=== PATIENT | female | born 1955 | race Caucasian/White ===

== ENCOUNTER 2019-05-23 09:24 | Inpatient (IN) ==
--- NOTE | 2019-05-23 11:10 | Diag Imaging Result Doc PS360 ---
EXAM: CHEST-2 VIEWS HISTORY: CHEST PAIN TECHNIQUE: Two views COMPARISON: None. FINDINGS: The lungs are well expanded. The heart is not enlarged. The vessels are not distended. There are no infiltrates. No pleural effusions. IMPRESSION: No acute abnormality. Electronically signed by Tevin Wise 05/23/2019 11:08 AM
--- NOTE | 2019-05-23 11:14 | Diag Imaging Result Doc PS360 ---
EXAM: KNEE 3 VIEWS RIGHT HISTORY: knee pain TECHNIQUE: Three views COMPARISON: None. FINDINGS: The bones are osteopenic. Minimal joint space narrowing. Small patellar bone spurring. No fracture. No dislocation. IMPRESSION: Mild arthritis. Electronically signed by Tevin Wise 05/23/2019 11:12 AM
--- NOTE | 2019-05-23 11:15 | Diag Imaging Result Doc PS360 ---
EXAM: XRAY PELVIS W/HIP 2-3VW RT HISTORY: hip pain TECHNIQUE: Three views COMPARISON: None. FINDINGS: There is bone spurring to each hip with mild joint space narrowing. No fracture. No dislocation. IMPRESSION: Mild arthritis Electronically signed by Tevin Wise 05/23/2019 11:13 AM
--- NOTE | 2019-05-23 11:22 | EKG Report ---
Test Performed on : 05/23/2019 09:31:52 AM Test Reason : CHEST PAIN Blood Pressure : / mmHG Vent. Rate : 078 BPM Atrial Rate : 078 BPM P-R Int : 122 ms QRS Dur : 088 ms QT Int : 378 ms P-R-T Axes : 024 -14 -10 degrees QTc Int : 430 ms Sinus rhythm. with premature supraventricular complexes. Moderate voltage criteria for LVH, may be normal variant Borderline ECG When compared with ECG of 11-APR-2010 11:18, premature supraventricular complexes. are now present T wave amplitude has increased in Lateral leads Unconfirmed Result
[2019-05-23 11:31] LABS: BASO# 0.01 X1000 (0.0-0.2); BASO% 0.1 % (0.0-0.8); EOS# 0.01 X1000 (0.0-0.7); EOS% 0.1 % (0.0-10.0); HEMATOCRIT 37.4 % (37.0-47.0); HEMOGLOBIN 11.9 g/dL (12.0-16.0); IMM GRAN# 0.05 X1000 (0.0-0.04); IMM GRAN% 0.3 % (0.0-0.5); LYMPH# 0.55 X1000 (1.2-3.4); LYMPH% 3.1 % (20.5-51.1); MCH 28.6 PG (27-31); MCHC 31.8 g/dL (33-37); MCV 89.9 FL (81-99); MONO# 0.56 X1000 (0.11-0.59); MONO% 3.2 % (1.7-9.3); MPV 12.5 FL (7.4-10.4); NEUT# 16.55 X1000 (1.4-6.5); NEUT% 93.2 % (42.2-75.2); PLT 133 X1000 (130-400); RBC 4.16 XMIL (4.2-5.4); RDW 13.4 % (11.5-14.5); WBC 17.73 X1000 (4.8-10.8)
[2019-05-23 11:37] LABS: INR 1.08; PROTIME 14.1 Seconds (11.0-16.0)
[2019-05-23 11:48] LABS: ALB/GLOB RATIO 0.9; ALBUMIN 3.1 g/dL (3.5-5.0); CALCIUM 9.1 mg/dL (8.8-10.2); CREATININE 2.5 mg/dL (0.5-0.9); POTASSIUM 3.9 mmol/L (3.5-5.1); TOTAL BILIRUBIN 1.25 mg/dL (0.20-1.00); TOTAL PROTEIN 6.7 g/dL (6.3-8.3)
--- NOTE | 2019-05-23 12:59 | PROVIDER DOCUMENTATION ---
This chart was entered by Desi Taylor Scribe, acting as scribe for Pat Paiz MD. HPI-General Adult - General Chief Complaint: Chest Pain Stated Complaint: Chest pain, N/V, dizziness Time Seen by Provider: 05/23/19 10:18 Source: patient, family Allergies/Adverse Reactions: Patient Allergies Allergy/AdvReac Type Severity Reaction Status Date / Time No Known Allergies Allergy Verified 05/23/19 11:53 Home Medications: Home Medication List Medication Instructions Recorded Confirmed Last Taken Type Duloxetine [Cymbalta] 60 mg PO DAILY 05/23/19 05/23/19 05/20/19 History Hydrocodone/APAP 7.5 mg/325 mg 1 ea PO Q4H PRN PRN 05/23/19 05/23/19 05/22/19 History [[place]-7.5] - History of Present Illness -Gen Adult Nature of Presenting Problems: Patient is a 64 y/o female presenting to the ED today c/o N/V, chest pain, and dizziness. Patient reports onset of symptoms Sunday. Patient states she has been unable to eat and has had recurrent N/V since Sunday. Patient states she has also been experiencing dizziness and chest pain. Patient reports she has had multiple falls from dizziness and weakness. Patient reports she has had a total of 4 falls and c/o right knee pain, right hip pain, and back pain secondary to falls. Patient reports her chest pain ranges from 3/10-8/10 in severity. Patient reports she has had some SOB which is worsened with deep breaths. Patient reports history of 1 cardiac stent about 15 years ago as well as degenerative fibromyalgia. Patient denies history of diabetes mellitus or hypertension. Patient denies all other signs/symptoms. Location of Pain/Injury: reports: chest, back, pelvis (left hip), lower extremity (right knee) Pain Radiation: reports: no radiation Quality of Pain: reports: aching Onset/Duration: reports: 4 days ago Timing: reports: still present Associated Symptoms: reports: chest pain, vomiting, other (dizziness) Similar Symptoms Previously?: No Recently seen or treated by another doctor?: No Review of Systems - Adult - REVIEW OF SYSTEMS - ADULT Constitutional: denies: chills, fever Eyes: reports: no symptoms reported Ears, Nose, Mouth & Throat: reports: no symptoms reported Cardiovascular: reports: chest pain Respiratory: reports: shortness of breath. denies: cough Gastrointestinal: reports: nausea, vomiting. denies: abdominal pain Genitourinary: reports: no symptoms reported Musculoskeletal: reports: bone pain (right knee, left hip), back pain Integumentary: reports: no symptoms reported Neurological: reports: dizziness/vertigo Psychiatric: reports: no symptoms reported Endocrine: reports: no symptoms reported Hematologic/Lymphatic: reports: no symptoms reported Allergic/Immunologic: reports: no symptoms reported Past History - Adult - PAST MEDICAL HISTORY-ADULT Review of Records: reports: Nursing Assessment Review Major Childhood Illnesses: reports: denies history Cardiovascular: reports: other (cardiac stent) Respiratory: reports: denies history Gastrointestinal: reports: denies history Obstetrical/Gynecological: reports: denies history Genitourinary: reports: denies history Musculoskeletal: reports: fibromyalgia, intervertebral disc disease Neurological: reports: denies history Psychiatric: reports: denies history Endocrine/Immune: reports: denies history. denies: Diabetes - PRIOR SURGERIES/PROCEDURES Surgical/Procedure History: reports: cardiac stent Physical Exam-General - PHYSICAL EXAM-ADULT Initial Vital Signs Reviewed: Yes - CONSTITUTIONAL General Appearance: appears well, alert - EYES Eyes: PERRL/EOMI - HEAD, EARS, NOSE, MOUTH & THROAT HENMT: normocephalic/atraumatic, normal ENT inspection, other (known cyst on right occipital region) - NECK Neck: non-tender. negative: carotid bruit, C-spine tenderness - RESPIRATORY Respiratory: chest non-tender, lungs clear - CARDIOVASCULAR Cardiovascular: normal peripheral pulses, regular rate, rhythm - GASTROINTESTINAL (ABDOMEN) Abdominal Exam: non tender, soft - MUSCULOSKELETAL Back Exam: no CVA tenderness, no vertebral tenderness Extremity: no pedal edema, tenderness (right knee) - SKIN Integumentary: warm/dry, abrasion(s) (over right knee) - NEUROLOGIC Neurologic: grossly normal - PSYCHIATRIC Psych/Mental Status: normal mood/affect, normal thought content, normal thought process, oriented x 3 Progress - PLAN OF CARE/RESULTS Progress/Plan/Lab Results: Vital Signs - 8 hr 05/23/19 09:33 Temperature 98.5 F Pulse Rate 78 Respiratory Rate 16 Blood Pressure 100/58 O2 Sat by Pulse Oximetry 97 Orders Category Date Time Status Cardiac Monitoring DIRECTED Care 05/23/19 09:35 Active Oxygen Therapy- ED Nursing DIRECTED Care 05/23/19 09:35 Active Saline Loc NOW Care 05/23/19 09:35 Active CHEST-2 VIEWS [RAD] Stat Exams 05/23/19 09:35 Ordered KNEE 3 VIEWS RIGHT [RAD] Stat Exams 05/23/19 10:23 Ordered XRAY PELVIS W/HIP 2-3VW RT [RAD] Stat Exams 05/23/19 10:23 Ordered CBC WITH ELECTRONIC DIFF [HEME] Stat Lab 05/23/19 10:38 Ordered CK PROFILE [SP CHEM] Stat Lab 05/23/19 10:38 Ordered COMPREHENSIVE METABOLIC PANEL [CHEM] Stat Lab 05/23/19 10:38 Ordered PRO B-NATRIURETIC PEPTIDE Stat Lab 05/23/19 10:38 Ordered PROTIME WITH INR [COAG] Stat Lab 05/23/19 10:38 Ordered PTT [COAG] Stat Lab 05/23/19 10:38 Ordered TROPONIN T Stat Lab 05/23/19 10:38 Ordered CP/SOB/Palp >45 yrs of Age Stat Oth 05/23/19 09:35 Ordered EKG [EKG] Stat Ther 05/23/19 09:35 Ordered Result Diagrams: 05/23/19 10:34 05/23/19 10:34 - EKG 1 Time of EKG reading by physician:: 09:31 EKG Read and Signed by:: Pat Paiz EKG Interpretation (*Must complete 3 of following elements*): Abnormal Rate: 78 Rhythm: Sinus rhythm with premature supraventricular complexes [place]: normal QRS: LVH NC Interval: normal ST Wave: normal - XRAY 1 XRAY Study: Knee (right) Impression: See EMR Report (EXAM: KNEE 3 VIEWS RIGHT HISTORY: knee pain KASSIE HNIQUE: Three views COMPARISON: None. FINDINGS: The bones are osteopenic. Minimal joint space narrowing. Small patellar bone spurring. No fracture. No dislocation. IMPRESSION: Mild arthritis. Electronically signed by Tevin Wise 05/23/2019 11:12 AM 05/23/19 1112 Interpreting Physician: Tevin Wise MD Dictated Date/Time: 05/23/19 1111 cc: Pat Paiz MD; None,PCP) 2 XRAY: Right XRAY Study: Pelvis Impression: See EMR Report (EXAM: XRAY PELVIS W/HIP 2-3VW RT HISTORY: hip pain TECHNIQUE: Three views COMPARISON: None. FINDINGS: There is bone spurring to each hip with mild joint space narrowing. No fracture. No dislocation. IMPRESSION: Mild arthritis Electronically signed by Tevin Wise 05/23/2019 11:13 AM 05/23/19 1113 Interpreting Physician: Tevin Wise MD Dictated Date/Time: 05/23/19 1112 cc: Pat Paiz MD; None,PCP) 3 XRAY Study: Chest Impression: See EMR Report (EXAM: CHEST-2 VIEWS HISTORY: CHEST PAIN TECHNIQUE: Two views COMPARISON: None. FINDINGS: The lungs are well expanded. The heart is not enlarged. The vessels are not distended. There are no infiltrates. No pleural effusions. IMPRESSION: No acute abnormality. Electronically signed by Tevin Wise 05/23/2019 11:08 AM 05/23/19 1108 Interpreting Physician: Tevin Wise MD Dictated Date/Time: 05/23/19 1108 cc: Pat Paiz MD; None,PCP) - CONSULTS/PCP/HOSPITALIST Notification #1 *Consult/PCP/Hospitalist*: ed CALLES Time Discussed: 12:56 Consult Disposition: Will see in ED (suggested urine and head ct) Departure - Departure Date of Disposition Decision: 05/23/19 Time of Disposition Decision: 12:56 DIAGNOSIS: Chest pain Qualifiers: Chest pain type: unspecified Qualified Code(s): R07.9 - Chest pain, unspecified Acute renal failure Qualifiers: Acute renal failure type: unspecified Qualified Code(s): N17.9 - Acute kidney failure, unspecified Congestive heart failure Qualifiers: Heart failure type: unspecified Heart failure chronicity: unspecified Qualified Code(s): I50.9 - Heart failure, unspecified Disposition: ADMITTED INPATIENT 09 Certified Medical Emergency: Emergent Condition: Good Referrals and Follow-Ups: None,PCP [Primary Care Provider] - - Critical Care Note This patient required my direct & personal management of CC.: No Attestation - Physician/ KHANG Attestation Patient care was provided by Advanced Practice Provider:: No The physician spent face to face time with patient:: Yes Advanced Practice Provider documentation review:: Supervising physician onsite and consulted in the evaluation and care of this patient. The physician did have a face to face encounter with the patient. This chart was documented by the indicated scribe, (Desi Taylor, Shanna) and accurately reflects the services I performed and decisions made by me, Pat Paiz MD, as attested by the provider's signature.
--- NOTE | 2019-05-23 15:19 | Diag Imaging Result Doc PS360 ---
EXAM: CT HEAD W/O CONTRAST HISTORY: dizziness, vomiting TECHNIQUE: CT head without contrast COMPARISON: None. FINDINGS: No parenchymal hemorrhage. No epidural or subdural hematoma. No subarachnoid hemorrhage. No mass identified on this noncontrasted exam. No hydrocephalus. No sinus opacification. IMPRESSION: No hemorrhage. Negative brain CT without contrast. This exam was performed using automated exposure control, adjustment of mA or kV according to patient size, and/or use of iterative reconstruction technique. Electronically signed by Tevin Wise 05/23/2019 3:17 PM
--- NOTE | 2019-05-23 15:19 | ECHO REPORT ---
ORDER DATE: 05/23/2019 INDICATIONS: Elevated proBNP. Chest pain. weakness. FINDINGS: 1. The right atrium appears normal size. 2. Moderate tricuspid regurgitation. RV systolic pressure of 46. 3. Normal RV size and systolic function. 4. No significant pulmonic insufficiency. 5. Mild left atrial enlargement. Dimension of 4.4 cm. Volume index of 29. 6. No mitral valve prolapse. Mild mitral regurgitation. No evidence of mitral stenosis. 7. Normal LV size, end-diastolic dimension of 4.7 cm. Mild left ventricular hypertrophy with a posterior and interventricular septal wall thickness of 1.0 and 1.3 cm respectively. Normal LV systolic function. Calculated ejection fraction of 58% with normal wall motion. 8. Aortic valve opens well. It is trileaflet. No evidence of stenosis or insufficiency. 9. Aorta appears normal visualized segments. 10. No pericardial effusion identified. cc: Aravind Pulido MD
--- NOTE | 2019-05-23 15:26 | Diag Imaging Result Doc PS360 ---
EXAM: CT THORAX/ABD/PELVIS W/O CON 05/23/2019 HISTORY: R/O infectious process TECHNIQUE: This exam was performed using automated exposure control, adjustment of mA or kV according to patient size, and/or use of iterative reconstruction technique. COMMENT: There our scattered calcified granulomata. There is some atelectasis or fibrosis in the posterior costophrenic sulcus of the right lower lobe. No evidence of acute pulmonary parenchymal disease is otherwise present. There are calcifications present in both hilar regions. The regional skeleton is intact. abdomen/pelvis: There are cortical cysts in both kidneys. There is hydronephrosis on the right with a stone in the lower pole measuring over 12 mm in diameter. There is some perinephric stranding on the right. There is a stone at the ureteropelvic junction measuring almost 11 mm in diameter. Just above the UVJ there is another stone measuring over 6 mm in diameter. The urinary bladder is unremarkable. There is no evidence of free fluid or free air. There is diverticulosis in the sigmoid colon without evidence of diverticulitis. There is no evidence of bowel obstruction. There has been gastric bypass. There has been cholecystectomy. There are spondylotic changes in the lumbar spine with spinal stenosis at L4-5. IMPRESSION: Right hydronephrosis with multiple stones in the right ureter. Other nonacute findings as described above. Electronically signed by Juan Francisco Wynne 05/23/2019 3:23 PM
[2019-05-23] MEDS ORDERED: ROCEPHIN 1 GM in NS 50 ML IV SCH (16:00)
[2019-05-23] MEDS: MORPHINE IV PRN ×2 (18:40→23:38)
[2019-05-23 18:51] LABS: URINE SOURCE CLEAN CATCH
[2019-05-23 19:00] LABS: BILIRUBIN URINE NEGATIVE (NEGATIVE); BLOOD URINE MODERATE (NEGATIVE); COLOR YELLOW; GLUCOSE URINE NEGATIVE (NEGATIVE); KETONE URINE TRACE mg/dL (NEGATIVE); LEUKOCYTES URINE SMALL (NEGATIVE); NITRITE URINE POSITIVE (NEGATIVE); PROTEIN URINE 100 mg/dL (NEGATIVE); SP GRAVITY URINE 1.017; TURBIDITY URINE HAZY (CLEAR); UROBILINOGEN URINE 2 mg/dL (NORMAL)
[2019-05-23 19:16] LABS: UR EPITHELIAL CELLS <10 /HPF (<10); URINE BACTERIA 2+ /HPF; URINE RBC <10 /HPF (<10); URINE WBC 20-40 /HPF (<10)
[2019-05-23 19:23] LABS: URINE CASTS GRANULAR PRESENT; URINE CRYSTALS NONE SEEN; URINE SMALL ROUND CELLS TRANS PRESENT; URINE YEAST NONE SEEN
[2019-05-23] MEDS ORDERED: ZOFRAN IV PRN (21:49)
[2019-05-23] MEDS ORDERED: TYLENOL PO PRN (21:49)
[2019-05-23] MEDS: NS 1,000 ML IV SCH (22:08)
--- NOTE | 2019-05-24 01:12 | HISTORY AND PHYSICAL ---
PRIMARY CARE PROVIDER: None. CHIEF COMPLAINT: Multiple falls, knee pain, hip pain, right flank pain, dizziness, nausea, diarrhea, no appetite. HISTORY OF PRESENT ILLNESS: Ms Rendon is a 64-year-old female who carries a past medical history of coronary artery disease status post stenting 15 years ago, gastric bypass, fibromyalgia, degenerative disk disease, who reports that she fell last week on to her right knee, then she fell again last Sunday. She has had 4 falls this week and hit her knee again, with pain up to her right hip. She has had intermittent chest pain for the last 2 weeks. On Sunday, she had an episode of diarrhea that lasted for 30 minutes and has not had any since that time. She has not been able to eat any solid food since then. She has been able to take sips of liquid. She has had bouts of nausea and vomiting. Any time she sits up she dry heaves. She has had dizziness, back pain as well as flank pain. She does have CVA tenderness. Initial workup in the ED was just with a hip and pelvis x-ray that showed mild arthritis; a knee x-ray that showed mild arthritis; a chest x-ray with no acute abnormality. White count is 17, a BUN of 35, a creatinine of 2.5 and a proBNP of 4821. We have gone ahead and ordered a head CT as well as a chest, abdomen and pelvis, an echocardiogram. Head CT has not shown anything acute. Chest, abdomen and pelvis showed right hydronephrosis with multiple stones in the right ureter. Echocardiogram shows an EF of 58% with mild LVH. First set of troponins have been negative. EKG shows a sinus rhythm with premature complexes and LVH. She will be admitted to medical telemetry floor, started on IV Rocephin, IV fluids, and a consult for urology. PAST MEDICAL HISTORY: Per HPI. PAST SURGICAL HISTORY: Cholecystectomy, right Achilles heel repair with steel plate, gastric bypass, coronary stenting 15 years ago. SOCIAL HISTORY: She is . Supportive daughter at bedside. No tobacco, alcohol or illicit drug use. FAMILY HISTORY: She had a brother who of an [facility]. Brother who of lung cancer. A Father who is of an [facility] and a Mother who is of a CVA. HOME MEDICATIONS: Cymbalta and B[place]. REVIEW OF SYSTEMS: Twelve-point review of systems completely negative, except for those mentioned in HPI. PHYSICAL EXAMINATION: VITAL SIGNS: Temperature is 98.5 degrees, heart rate 78, respirations 16, blood pressure 100/58, O2 is 97% on room air. GENERAL: Ms. Rendon is a pleasant, 64-year-old female who is lying in the bed, in no acute distress. HEENT: Atraumatic, normocephalic. PERRL. NECK: Supple. Trachea midline. No JVD appreciated. CARDIOVASCULAR: S1, S2 appreciated. No murmurs, gallops, or rubs noted. RESPIRATORY: Lung sounds clear bilaterally. GASTROINTESTINAL: Soft, nontender, nondistended. Positive bowel sounds 4 quadrants. LOWER EXTREMITIES: Maybe some trace edema. MUSCULOSKELETAL: She does have some CVA tenderness. NEUROLOGIC: No focal deficits noted. DIAGNOSTIC DATA: Per HPI. LABORATORY DATA: White count 17, hemoglobin and hematocrit 11 and 37, platelet count is 133,000. Sodium 137, potassium 3.9, BUN 35, creatinine 2.5. Total bilirubin 1.25, alkaline phosphatase 148. Troponin less than 0.010. ProBNP is 4821. Albumin 3.1. ASSESSMENT AND PLAN: 1. Right hydronephrosis with multiple stones in the right ureter. We will initiate her on IV antibiotics. Currently awaiting her urinalysis. We will consult Urology. 2. Acute kidney injury, likely secondary to fluid volume depletion. Patient has had multiple bouts of nausea, vomiting and a severe episode of diarrhea on Sunday; has not been taking any p.o. We will hold any nephrotoxic medications. Aggressively hydrate her. Recheck her renal function in the a.m. as well as resolutions of her ureter stones. 3. Fluid volume depletion. Continue with IV fluids. 4. Elevated proBNP. Patient does not appear to be fluid volume overloaded. She appears to be actually dehydrated. Imaging does not show any fluid in the lungs. Echocardiogram shows a normal EF. 5. Leukocytosis secondary to #1. 6. Intermittent chest pain in a patient with known coronary artery disease. Again, we checked an echocardiogram. We will rule out with serial troponins. Her 1st troponin was negative. She is not currently having any chest pain, has not had any chest pain today, she has had a believe 2 episodes over the past 2 weeks. We will monitor her on telemetry. 7. Nausea, vomiting episodes. Will provide antiemetics. 8. Fibromyalgia and degenerative disk disease. Aware. Further recommendation to follow physician evaluation, laboratory and diagnostic data. Dictated by ROJAS Ashraf for Rohan Renteria MD Agree with the above. the following is my own face to face assessment and plan. Patient presenting with chest/epigastric pain and dizziness after several days of nausea, poor PO intake, and occasional vomiting. KEVIN on labs. initially favored UTI with early sepsis and poor PO intake but CT showing hydronephrosis with stones so that's probably the etiology. will hydrate and get urology on board. elevated BNP but appears volume down on exam. obtained echo showing normal EF, does show mild to moderate pulmonary HTN so may have sleep apnea and pulm HTN as the cause of her elevated BNP. MTDD
[2019-05-24] MEDS: NS 1,000 ML IV SCH ×2 (05:15→15:45)
[2019-05-24 06:19] LABS: ALB/GLOB RATIO 0.7; ALBUMIN 2.4 g/dL (3.5-5.0); CALCIUM 8.3 mg/dL (8.8-10.2); CREATININE 2.5 mg/dL (0.5-0.9); POTASSIUM 3.6 mmol/L (3.5-5.1); TOTAL BILIRUBIN 1.28 mg/dL (0.20-1.00); TOTAL PROTEIN 5.8 g/dL (6.3-8.3)
[2019-05-24 06:31] LABS: EOS# 0.01 X1000 (0.0-0.7); EOS% 0.1 % (0.0-10.0); HEMATOCRIT 34.1 % (37.0-47.0); HEMOGLOBIN 10.9 g/dL (12.0-16.0); IMM GRAN# 0.07 X1000 (0.0-0.04); IMM GRAN% 0.6 % (0.0-0.5); LYMPH# 0.22 X1000 (1.2-3.4); LYMPH% 1.8 % (20.5-51.1); MCH 28.5 PG (27-31); MCV 89.3 FL (81-99); MONO# 0.56 X1000 (0.11-0.59); MONO% 4.6 % (1.7-9.3); NEUT# 11.22 X1000 (1.4-6.5); NEUT% 92.9 % (42.2-75.2); PLT 104 X1000 (130-400); RBC 3.82 XMIL (4.2-5.4); RDW 13.3 % (11.5-14.5); WBC 12.08 X1000 (4.8-10.8)
[2019-05-24] MEDS ORDERED: KEFZOL 1 GM/D5W 1 GM/50 ML IVPB IV ONE (06:52)
[2019-05-24] MEDS ORDERED: XYLOCAINE-MPF 2% ONE (07:18)
[2019-05-24] MEDS ORDERED: DIPRIVAN 1% ONE (07:19)
[2019-05-24] MEDS ORDERED: KEFZOL 1 GM/D5W 1 GM/50 ML IVPB ONE (07:38)
[2019-05-24 08:12] LABS: LYMPHS 2 % (21-51); MONO 2 % (1-9); SEGS 90 % (42-75)
[2019-05-24] MEDS ORDERED: ZOFRAN ONE (08:24)
[2019-05-24] MEDS ORDERED: DECADRON ONE (08:24)
[2019-05-24] MEDS ORDERED: EPHEDRINE ONE (08:33)
[2019-05-24] MEDS ORDERED: NORCO-7.5 ONE (08:55)
[2019-05-24] MEDS ORDERED: FLOMAX PO ONE (09:45)
[2019-05-24] MEDS: ZOSYN 2.25 GM in NS 50 ML IV SCH ×2 (10:23→18:11)
[2019-05-24] MEDS: NORCO-7.5 PO PRN (14:55)
--- NOTE | 2019-05-24 16:47 | PROGRESS NOTE ---
DATE: 05/24/2019 SUBJECTIVE: This patient is lying comfortably in bed. She is still complaining of some abdominal pain. She just came back from the OR. Apparently, they removed a stone on the right side and a lot of pus came out, I will stop the ceftriaxone. I will put her on Zosyn. She still has acute kidney injury but the last creatinine was done in 2015 and was normal so I am not quite sure about her baseline. OBJECTIVE: Vital Signs: Temperature 97.3 degrees, pulse 95, respiratory rate 22, blood pressure 120/49, oxygen saturation 97 on room air. HEENT: Head normocephalic, no trauma. PERRLA. Neck: Supple. No JVD. No masses. Central trachea. Chest: Clear to auscultation. No wheezing, no rales. Abdomen: Soft, some discomfort to palpation at the level of the right flank. No signs of peritoneal irritation. Extremities: Some trace edema, no clubbing, no cyanosis. Neurological: The patient is alert and oriented x3. No focal deficits. LABORATORY: WBC 12, hemoglobin 10.9, hematocrit 34.1, platelet 104,000. Sodium 137, potassium 3.6, chloride 100, bicarbonate 20, BUN 38, creatinine 2.5, glucose 102, calcium 8.3, albumin 2.4. ASSESSMENT AND PLAN: 1. Right hydronephrosis with multiple stones in the right ureter, I have switched the ceftriaxone to Zosyn, renally dosed, I also requested a urine culture and blood culture, Urology Department took this patient to the operating room and they removed a stone and a lot of pus came out, I will broad the coverage and I will continue with IV fluids. 2. Acute kidney injury, probably secondary to dehydration and obstruction. We will continue with same management. Patient had multiple bouts of nausea, vomiting and apparently also some diarrhea, we will avoid nephrotoxic medications. 3. Dehydration resolved. 4. Elevated proBNP. I am not quite sure why this patient's BNP was elevated but she has no complaint of shortness of breath or chest pain. Echocardiogram showed a normal ejection fraction. 5. Leukocytosis secondary to #1, she does have a urinary tract infection as well pyuria. 6. Intermittent chest pain in a patient with a known history of coronary artery disease. Troponins negative x3. No chest pain at this moment. 7. Nausea and vomiting, resolved. 8. Fibromyalgia, aware. cc: Yoandy Sethi MD
--- NOTE | 2019-05-24 20:14 | CONSULTATION ---
DATE OF CONSULTATION: 05/24/2019 CHIEF COMPLAINT: 1. Right ureteral stones. 2. Right flank pain. 3. Nausea and vomiting. HISTORY OF PRESENT ILLNESS: Ms. Rendon is a 64-year-old with history of fibromyalgia, coronary artery disease status post coronary stenting, history of gastric bypass, and degenerative disk disorder, who presented to the emergency room complaining of chest pain as well as pain within her right knee. The patient states she has fell multiple times since last Sunday, saying it has been at least 4. She had some pain in the right knee as well as right hip. She says she has had some intermittent chest pain as well. The patient states she has not eaten well since Sunday and has thrown up most everything she has eaten, and was dry heaving on Sunday. She feels like she has gotten relatively dehydrated. She has occasional back pain which she associates with her degenerative disk disorder. The patient had workup in the emergency room which showed a white blood cell count of 17, with a creatinine of 2.5. The patient's proBNP [place] 4821. CT abdomen and pelvis was performed which showed multiple stones within the right ureter, 1 near the ureterovesical junction, as well as 2 near the ureteropelvic junction, as well as a large amount of stones in the kidney itself. She remains afebrile. She had a workup for cardiac issues with echocardiogram, EKG, and troponins which have all been negative. The patient was admitted to the hospital floor and has been monitored overnight. She remains afebrile and states that she had some right abdominal flank pain last night. She denies any dysuria or hematuria. The patient has a history of prior kidney stones treated by Dr. Farias about 15 to 20 years ago. PAST MEDICAL HISTORY: 1. Coronary artery disease, status post stenting. 2. Gastric bypass. 3. Fibromyalgia. 4. Degenerative disk disorder. 5. Nephrolithiasis. PAST SURGICAL HISTORY: 1. Cholecystectomy. 2. Right Achilles heel repair. 3. Gastric bypass. 4. Coronary stenting. 5. Ureteroscopy and stone removal. ALLERGIES: No known drug allergies. HOME MEDICATIONS: 1. Cymbalta. 2. [place]. FAMILY HISTORY: Denies family history of malignancy. A long history of kidney stones in her family. SOCIAL HISTORY: The patient denies tobacco, alcohol, illicit drug use. REVIEW OF SYSTEMS: A 12-point review of systems performed with all pertinent positives and negatives in HPI. PHYSICAL EXAMINATION: Vital Signs: Temperature 99.0 degrees, heart rate 96, blood pressure 100/53, oxygen saturation is 96% on room air. General: No acute distress. Resting comfortably in bed. Alert and oriented x3. HEENT: Normocephalic, atraumatic. Pupils equal, round, reactive to light. Neck: Trachea midline with no palpable masses. Respiratory: Good respiratory effort without audible wheezing or rales. Cardiovascular: Tachycardia with regular rhythm. No evidence of lower extremity edema. Abdomen: Soft, nontender, nondistended. No palpable masses. Genitourinary: Mild right CVA tenderness. No suprapubic tenderness. Musculoskeletal: Moving all extremities. Small bandage overlying the right knee. Neurologic: Gross motor and sensory intact. Skin: No obvious skin lesions or rashes. LABORATORY DATA: White blood cell count 12.1, hemoglobin 10.9, hematocrit 34.1, platelets 104,000. Sodium 137, potassium 3.6, chloride 100, bicarbonate 20, BUN 38, creatinine 2.5, calcium 8.3, glucose 102, alkaline phosphatase 135. Urinalysis: Moderate blood, nitrite positive, 20 to 40 white blood cells, less than 10 RBCs, no epithelial cells, 2+ bacteria. IMAGING: CT of abdomen and pelvis images reviewed, which showed a distal right ureteral stone near the bladder itself measuring approximately 5 mm. Two larger stones were seen in the proximal ureter near the ureteropelvic junction which were quite large, as well as a large stone burden in the lower pole of the right kidney, as well as bilateral renal cysts with largest cyst in the left kidney. ASSESSMENT AND PLAN: Ms. Rendon is a 64-year-old with coronary artery disease, fibromyalgia, degenerative disk disorder, nephrolithiasis, who presents in consultation regarding right ureteral stones. The patient has multiple stones within the right ureter, 1 at the ureterovesical junction, as well as 2 near the ureteropelvic junction, as well as multiple stones in the kidney itself. In talking with her, I recommended ureteroscopy and removal of stones. I told her that it seems that she may have an infection. White blood cell count has improved on antibiotics. Kidney function remains elevated at 2.5. The patient has been afebrile, but has had some low- grade tachycardia with stable blood pressures. I told her if a large amount of purulence came out, that we would just place a stent and have to return at some other time for definitive therapy of her stones. I told her that she ultimately would likely need extracorporeal shock lithotripsy for her kidney stones. The patient was made n.p.o. in preparation for surgery today. We will take to the operating room for right ureteroscopy, laser lithotripsy, stone basket extraction, and right ureteral stenting. Risks, benefits, alternatives to surgical procedure discussed with patient, and patient elected to proceed. cc: Bony Valerio MD MTDDeanne
--- NOTE | 2019-05-24 22:46 | OPERATIVE NOTE ---
PROCEDURE DATE: 05/24/2019 PREOPERATIVE DIAGNOSES: 1. Right ureteral stones. 2. Urinary tract infection. 3. Right renal stones. POSTOP DIAGNOSIS: 1. Right ureteral stones. 2. Urinary tract infection. 3. Right renal stones. PROCEDURE PERFORMED: 1. Cystoscopy. 2. Right ureteroscopy with laser lithotripsy. 3. Stone basket extraction. 4. Right ureteral stent placement. SURGEON: Bony Valerio MD. BUSINESS OFFICE MANAGER: None. COMPLICATIONS: None. BLOOD LOSS: Minimal. DRAIN: 6 x 24 cm right ureteral stent. INDICATIONS FOR PROCEDURE: Ms Rendon is a 64-year-old who presented to the hospital complaining of chest pain, fatigue and recent falls. The patient had blood work which showed a elevated creatinine at 2.5 and white blood cell count of 17. Urinalysis shows bacteria as well as significant leukocytes and RBCs. The patient had a CT scan done which showed multiple stones within the right ureter itself, 1 in the distal ureter as well as 2 proximal ureteral stones as well as multiple stones within the kidney. Concern arises the patient has evidence of urinary tract infection with obstruction. The patient's renal function did not improve on a.m. labs. She has been tachycardic with low-grade temperatures. No evidence of hypotension. Due these findings, I recommended cystoscopy, possible right ureteroscopy, lithotripsy and stone basket extraction with placement of right ureteral stent. Risks, benefits, alternatives procedure discussed with patient, patient elected to proceed. DESCRIPTION OF PROCEDURE: After informed consent was obtained, the patient brought to the operating room, placed on the operating table in supine position. The patient received preoperative antibiotics and underwent LMA placement. She was positioned into dorsal lithotomy position was prepped and draped in usual sterile fashion. A preoperative time- out was performed with all parties in agreement, including anesthesia, surgical, nursing staff. At which point I inserted a 21-Macedonian cystourethroscope through the urethra. The patient had a normal urethra with evidence of grade 2 cystocele. Once in the bladder the entirety of the bladder was inspected with no evidence of any diverticulum, cellules, trabeculations, or papillary lesions. A small amount of sediment was seen at the base of the bladder which drained adequately with no significant purulence in the bladder itself. Both ureteral orifices were visualized with efflux of clear yellow urine. At which time a ZIPwire was then passed through the cystourethroscope and cannulated the right ureteral orifice and passed all the way up into collecting system. The wire was left in place and the bladder was drained. Decision was made to perform right ureteroscopy as there were no symptoms of infection at that time. Passed the ureteroscope easily through the urethra into the bladder, using a PTFE wire the right ureteral orifice was cannulized and advanced up to the site of stone, stone was then fragmented using a 365 micron fiber with settings of 0.6 and 6 do. Stone fragmented easily in several pieces and each of these grasped and dropped in the bladder for later retrieval. The ureteroscope was then advanced up into the proximal ureter where 2 other stones were seen. Decision was made to try break the stones up. However in the process of breaking up a large amount of purulence returned from behind the stones, stones were then moved higher up and a large amount of sediment was seen in proximal ureter at this time. Decision was made to abort the ureteroscopy to decrease risk worsening her infection. Wire was left in place. The ureteroscope was slowly withdrawn which showed some edema at the site of previously passed stone in the distal ureter. Ureteroscope was completely removed and the wire was then back-loaded through the cystourethroscope and a 6 x 24 cm right ureteral stent was advanced with good curl in the kidney and endoscopically visualized in the bladder. A large amount of sediment was seen draining through and around the stent and this was irrigated out the bladder. Patient's bladder was left decompressed and all stone fragments previously in the bladder were retrieved for analysis. The patient was then awoken and was taken to recovery in stable condition. DISPOSITION: Patient will be transferred back to the floor for observation. Will continue on IV antibiotics and follow up with culture specific antibiotics. Continue with IV fluids and pain control as necessary. Will need definitive stone therapy for kidney stones in the future. cc: Bony Valerio MD MTDD
[2019-05-25] MEDS: NS 1,000 ML IV SCH ×4 (00:20→19:30)
[2019-05-25] MEDS: ZOSYN 2.25 GM in NS 50 ML IV SCH ×4 (02:26→20:34)
[2019-05-25] MEDS: NORCO-7.5 PO PRN ×3 (03:59→21:28)
[2019-05-25 05:57] LABS: HEMATOCRIT 33.7 % (37.0-47.0); HEMOGLOBIN 10.6 g/dL (12.0-16.0); IMM GRAN# 0.03 X1000 (0.0-0.04); IMM GRAN% 0.4 % (0.0-0.5); LYMPH# 0.43 X1000 (1.2-3.4); LYMPH% 5.2 % (20.5-51.1); MCH 28.5 PG (27-31); MCHC 31.5 g/dL (33-37); MCV 90.6 FL (81-99); MONO# 0.28 X1000 (0.11-0.59); MONO% 3.4 % (1.7-9.3); MPV 12.8 FL (7.4-10.4); NEUT# 7.53 X1000 (1.4-6.5); PLT 82 X1000 (130-400); RBC 3.72 XMIL (4.2-5.4); RDW 13.9 % (11.5-14.5); WBC 8.27 X1000 (4.8-10.8)
[2019-05-25 06:15] LABS: ALB/GLOB RATIO 0.7; ALBUMIN 2.2 g/dL (3.5-5.0); CALCIUM 8.6 mg/dL (8.8-10.2); CREATININE 1.8 mg/dL (0.5-0.9); POTASSIUM 4.1 mmol/L (3.5-5.1); TOTAL BILIRUBIN 0.8 mg/dL (0.20-1.00); TOTAL PROTEIN 5.5 g/dL (6.3-8.3)
[2019-05-25] MEDS: FLOMAX PO SCH (08:06)
--- NOTE | 2019-05-25 09:18 | PROGRESS NOTE ---
DATE: 05/25/2019 SUBJECTIVE: Postoperative day 1 from right ureteroscopy, laser lithotripsy, stone basket extraction, right ureteral stent placement. The patient has done well. She states her pain is much better. She did take 1 pain pill overnight. She denies any dysuria or hematuria. She states she feels like her urine may be slightly more concentrated. She remains afebrile with stable vital signs. She has been able to tolerate p.o. intake and denies nausea or vomiting. OBJECTIVE: Vital Signs: Temperature 97.9 degrees, heart rate 73, blood pressure 105/56, oxygen saturation 93% on room air. General: No acute distress. Resting comfortably in bed. Alert and oriented x3. Respiratory: Good respiratory effort without audible wheezing or rales. Abdomen: Soft, nontender, nondistended. No palpable masses. : No suprapubic tenderness. No CVA tenderness. Skin: No skin lesions or rashes. LABORATORY DATA: White blood cell count 8.2, hemoglobin 10.6, hematocrit 33.7, platelets 82,000. Sodium 140, potassium 4.1, chloride 107, bicarb 20, BUN 33, creatinine 1.8, glucose 216. ASSESSMENT AND PLAN: Mrs. Rendon is a 64-year-old who is postoperative day 1 from right ureteroscopy, laser lithotripsy, and stone basket extraction with right ureteral stent placement. The patient has had significant improvement in her pain and discomfort. The patient is able to tolerate oral intake. Her renal function continues to improve. Creatinine is 1.8 from 2.5 yesterday. White blood cell count has trended back to normal at 8.27. She remains afebrile with stable vital signs. Urine culture is still in the lab and is not finalized. Her blood cultures are preliminary as well. We will continue to monitor from a urologic standpoint. Will continue evaluation in the hospital until renal function trends back toward normal, and to follow up her urine culture. Continue on intravenous antibiotics. These seem to be helping her. Will transition to oral antibiotics once culture data returns. Discussed with her today, treatment of her right renal stones in the future. Will plan to try to do this while she is still on antibiotics. Will continue to monitor from a urologic standpoint. Please call with questions or concerns. cc: MD SAHIL Cedillo
--- NOTE | 2019-05-25 10:20 | PROGRESS NOTE ---
DATE: 05/25/2019 SUBJECTIVE: This patient is lying comfortably in bed. She is complaining of some abdominal soreness. Vital signs are stable as well as the laboratory. Actually the white blood cell count normalized and the kidney function is getting better. Since this patient is eating good, I will decrease the rate of the IV fluids from 125 mL/h to 100 and I will monitor. Urine culture and blood culture negative so far. OBJECTIVE: Vital Signs: Temperature 97.6 degrees, pulse 53 respiratory rate 18, blood pressure 124/60, oxygen saturation 100% on room air. HEENT: Head normocephalic, no trauma. PERRLA. Neck: Supple. No JVD. No masses. Central trachea. Chest: Clear to auscultation. No wheezing. No rales. Abdomen: Soft. Some discomfort to palpation at the level of the right flank. No signs of peritoneal irritation. Extremities: Trace edema. No clubbing. No cyanosis. Neurological: The patient is alert and oriented x3. No focal deficits. LABORATORY: WBC 8.2, hemoglobin 10.6, hematocrit 33.7, platelets 82,000 sodium 140, potassium 4.1, chloride 107, bicarbonate 20, BUN 33, creatinine 1.8, glucose 160, and calcium 8.6. AST 13, ALT 11, alkaline phosphatase 130, albumin 2.2. ASSESSMENT AND PLAN: 1. Right hydronephrosis with multiple stones in the right ureter status post cystoscopy with right ureteroscopy with laser lead lithotripsy, stone basket extraction, and right ureteral stent placement, postoperative day #1. Continue with antibiotics. Urology department following this patient. 2. Acute kidney injury, likely secondary to dehydration and obstruction, this is getting better. Continue with the same management. She is getting IV fluids. I will avoid nephrotoxic medications. 3. Dehydration resolved. 4. Elevated proBNP, will monitor for now. Echocardiogram showed normal ejection fraction. 5. Leukocytosis secondary to #1 resolved. 6. Intermittent chest pain in a patient with a known history of coronary artery disease. No chest pain today. 7. Nausea and vomiting, resolved. She is tolerating p.o. 8. Fibromyalgia, aware. 9. I will readjust her dose of the antibiotics due to her improvement of her kidney function. cc: Yoandy Sethi MD
[2019-05-26] MEDS: ZOSYN 2.25 GM in NS 50 ML IV SCH (02:26)
[2019-05-26] MEDS: NORCO-7.5 PO PRN ×3 (03:11→15:24)
[2019-05-26] MEDS: NS 1,000 ML IV SCH ×2 (05:34→17:09)
[2019-05-26 05:49] LABS: BASO# 0.01 X1000 (0.0-0.2); BASO% 0.1 % (0.0-0.8); EOS# 0.01 X1000 (0.0-0.7); EOS% 0.1 % (0.0-10.0); HEMATOCRIT 34.7 % (37.0-47.0); HEMOGLOBIN 10.9 g/dL (12.0-16.0); IMM GRAN# 0.06 X1000 (0.0-0.04); IMM GRAN% 0.4 % (0.0-0.5); LYMPH# 1.23 X1000 (1.2-3.4); LYMPH% 8.9 % (20.5-51.1); MCH 28.7 PG (27-31); MCHC 31.4 g/dL (33-37); MCV 91.3 FL (81-99); MONO# 0.95 X1000 (0.11-0.59); MONO% 6.8 % (1.7-9.3); NEUT# 11.63 X1000 (1.4-6.5); NEUT% 83.7 % (42.2-75.2); PLT 109 X1000 (130-400); RDW 14.2 % (11.5-14.5); WBC 13.89 X1000 (4.8-10.8)
[2019-05-26 05:53] LABS: CREATININE 1.8 mg/dL (0.5-0.9); POTASSIUM 3.6 mmol/L (3.5-5.1)
--- NOTE | 2019-05-26 07:45 | PROGRESS NOTE ---
DATE: 05/26/2019 SUBJECTIVE: Postoperative day 2 from right ureteroscopy, laser lithotripsy, stone basket extraction, and right ureteral stent placement. The patient did relatively well overnight. She was having some flank pain last night that seems to resolve today. She says it was after having a bowel movement yesterday. The patient remains afebrile with stable vital signs. She denies any dysuria or hematuria. OBJECTIVE: Vital Signs: Temperature 98.5 degrees, heart rate 56, blood pressure 134/65, oxygen saturation 99% on room air. General: No acute distress. Resting comfortably in bed. Alert and oriented x3. Respiratory: Good respiratory effort without audible wheezing or rales. Abdomen: Soft, nontender, nondistended. : No suprapubic tenderness. No CVA tenderness. Skin: No obvious skin lesions or rashes. LABS: White blood cell count 13.9, hemoglobin 10.9, hematocrit 34.7, platelets 109. Sodium 141, potassium 3.6, chloride 109, bicarbonate 23. BUN 29, creatinine 1.8, glucose 106, calcium 8.0. MICROBIOLOGY: Urine culture from 05/23/2019 growing gram-negative rods 50,000 to 60,000. ASSESSMENT AND PLAN: Ms. Rendon is a 64-year-old, who is postoperative day 2 from right ureteroscopy, laser lithotripsy, stone basket extraction, and right ureteral stent placement. The patient has had some intermittent pain and discomfort, which seems to be improved. The patient is tolerating oral intake, had a bowel movement yesterday. Renal function is stable today 1.8 from 1.8 yesterday. Uncertain what her true baseline is. She does not seem to have followed up with the primary care doctor consistently. Urine culture continues to grow gram-negative rods. Recommend waiting for finalization. The patient had a slight increase in her white blood cell count today from 8.3 yesterday to 13.9. The patient's antibiotics were changed yesterday. Interested to see if the bacteria is resistant to Zosyn leading to her elevated white blood cell count and continued pain. If p.o. option is available, we will transition her to that for at least 2 weeks of p.o. antibiotics. Tentatively plan to try to treat her kidney stone on 06/05/2019 with right extracorporeal shockwave lithotripsy. We will obtain a KUB today to assess for residual stone burden and surgical planning. We will continue the antibiotics until the time of discharge. We will continue to monitor from a urologic standpoint. Please call with questions or concerns. cc: Bony Valerio MD MTDD
--- NOTE | 2019-05-26 08:29 | Diag Imaging Result Doc PS360 ---
EXAM: FLUOROSCOPY CYSTO INDICATION: RT STENT PLACEMENT TECHNIQUE: COMPARISON: None. FINDINGS: Eight spot fluoroscopic images were provided, which were performed during right ureteral stent placement by Dr. Bony Valerio. Right nephrolithiasis with a known obstructing stone in the proximal right ureter are noted on the initial images. On the final image, the newly placed right ureteral stent is identified in the expected position. IMPRESSION: As above. Please correlate with live fluoroscopic imaging. Electronically signed by Vicente Scott 05/26/2019 8:26 AM
[2019-05-26] MEDS ORDERED: LEVAQUIN 750 MG/D5W 750 MG/150 ML IVPB IV SCH (08:45)
[2019-05-26] MEDS: FLOMAX PO SCH (09:37)
--- NOTE | 2019-05-26 15:28 | Diag Imaging Result Doc PS360 ---
KUB ABDOMEN - 05/26/2019 INDICATION: history of renal and ureteral stones COMPARISON: 05/23/2019 FINDINGS: There is a right nephroureteral stent in good position. No bowel structure or free air. No abnormal calcifications. IMPRESSION: No complication. Electronically signed by Fahad Rangel 05/26/2019 3:26 PM
--- NOTE | 2019-05-26 16:47 | PROGRESS NOTE ---
DATE: 05/26/2019 SUBJECTIVE: The patient is lying comfortably in bed. Apparently, she spent the night with some abdominal pain, which was generalized. Vital signs are stable. White blood cell count increased from 8 to 13. We have a positive urine culture that showed E. coli that basically is pansensitive including to Zosyn. I discussed the case with Dr. Bony Valerio from Urology Department and it has been decided to stop the Zosyn and put this patient on levofloxacin. I have placed this patient on 750 mg IV every 48 hours based on her renal function and we will monitor. She is not having fever or chills, but she has been complaining of right-sided back pain. OBJECTIVE: Vital Signs: Temperature 97.3 degrees, pulse 66, respiratory rate 21, blood pressure 146/85, oxygen saturation 99 on room air. HEENT: Head normocephalic. No trauma. PERRLA. Neck: Supple. No JVD. No masses. Central trachea. Chest: Clear to auscultation. No wheezing. No rales. Abdomen: Soft. Some discomfort to palpation at the level of the right flank and generalized abdominal discomfort. No signs of peritoneal irritation. Extremities: Trace edema. No clubbing. No cyanosis. Neurological: The patient is awake, alert, and oriented x3. No focal deficits. LABORATORY: WBC 13.8, hemoglobin 10.9, hematocrit 34.7, platelets 109,000. Sodium 141, potassium 3.6, chloride 109, bicarbonate 23, BUN 29, creatinine 1.8, glucose 106, calcium 8. ASSESSMENT AND PLAN: 1. Right hydronephrosis with multiple stones in the right ureter, status post cystoscopy with right ureteroscopy with laser lithotripsy, stone basket extraction, and right ureteral stent placement, postoperative day #2. I will continue with antibiotics. Urine culture showed Escherichia coli sensitive to Zosyn but we will switch it to Levaquin and will monitor. 2. Urinary tract infection due to Escherichia coli, pansensitive. This patient was getting Zosyn since 2 days ago and we have decided to put her on Levaquin. Likely this patient will need at least 2 weeks of p.o. treatment at home with Levaquin for this condition. The case has been discussed with Urology Department. 3. Acute kidney injury, likely secondary to dehydration and obstruction. This is getting better. We will avoid nephrotoxic medications. I do not have a baseline creatinine back. Back in 2015 her creatinine was basically normal. 4. Dehydration, resolved. 5. Elevated proBNP. We will monitor. Echocardiogram showed normal ejection fraction. 6. Leukocytosis, likely due to urinary tract infection. Today the white blood cell count increased from 8 to 13 but she is not having fever or chills. We will monitor. 7. Intermittent chest pain in a patient with known history of coronary artery disease. No chest pain at this moment. 8. Nausea and vomiting, resolved. 9. Fibromyalgia. Aware. Case has been discussed with Dr. Valerio from Urology Department. It has been decided to put this patient on Levaquin and probably she will need at least 2 weeks of antibiotics once she goes home. Her kidney function is better compared with admission but still BUN and creatinine are elevated. I do not have any baseline for this patient. The last creatinine was in 2014 and was normal. Please discuss the case with Dr. Valerio before sending this patient home. She will need more intervention. cc: Yoandy Sethi MD
[2019-05-27] MEDS: NORCO-7.5 PO PRN (00:12)
[2019-05-27] MEDS: NS 1,000 ML IV SCH (02:26)
[2019-05-27 05:37] LABS: BASO# 0.01 X1000 (0.0-0.2); BASO% 0.1 % (0.0-0.8); EOS# 0.11 X1000 (0.0-0.7); EOS% 1.3 % (0.0-10.0); HEMATOCRIT 39.1 % (37.0-47.0); HEMOGLOBIN 12.2 g/dL (12.0-16.0); IMM GRAN# 0.07 X1000 (0.0-0.04); IMM GRAN% 0.8 % (0.0-0.5); LYMPH# 1.02 X1000 (1.2-3.4); LYMPH% 11.7 % (20.5-51.1); MCH 28.4 PG (27-31); MCHC 31.2 g/dL (33-37); MCV 91.1 FL (81-99); MONO% 10.3 % (1.7-9.3); MPV 12.4 FL (7.4-10.4); NEUT# 6.63 X1000 (1.4-6.5); NEUT% 75.8 % (42.2-75.2); PLT 121 X1000 (130-400); RBC 4.29 XMIL (4.2-5.4); RDW 14.1 % (11.5-14.5); WBC 8.74 X1000 (4.8-10.8)
[2019-05-27 05:50] LABS: CREATININE 1.3 mg/dL (0.5-0.9); POTASSIUM 3.3 mmol/L (3.5-5.1)
[2019-05-27 07:49] VITALS: BP 126/55
[2019-05-27] MEDS ORDERED: KLOR-CON PO ONE (07:54)
[2019-05-27] MEDS: FLOMAX PO SCH (09:38)
--- NOTE | 2019-05-28 14:43 | DISCHARGE SUMMARY ---
ADMISSION DATE: 05/23/2019 DISCHARGE DATE: 05/27/2019 DISCHARGE DIAGNOSES: 1. Right hydronephrosis with multiple stones in the right ureter, status post cystoscopy with right ureteroscopy with laser lithotripsy, stone basket extraction, and right lateral stent placement, postoperative day #3. 2. Urinary tract infection due to Escherichia coli, pansensitive. 3. Acute kidney injury, much better. 4. Dehydration, resolved. 5. Elevated proBNP. 6. Leukocytosis, resolved. 7. Intermittent chest pain in a patient with a known history of coronary artery disease. 8. Nausea and vomiting, resolved. 9. Fibromyalgia, aware. PROCEDURES PERFORMED: 1. Chest x-ray dated 05/23/2019. Impression: No acute abnormality. 2. Hip and pelvis x-ray dated 05/23/2019. Impression: Mild arthritis. 3. Knee x-ray dated 05/23/2019. Impression: Mild arthritis. 4. Head CT dated 05/23/2019. Impression: No hemorrhage, negative brain CT without contrast. 5. Chest, abdomen and pelvis CT scan dated 05/23/2019. Impression: Right hydronephrosis with multiple stones in the right ureter. 6. Echocardiogram dated 05/23/2019. Impression: Normal right ventricular size and systolic function, ejection fraction of 58% with normal wall motion. Normal left ventricular systolic function. 7. Cystoscopy with right ureteroscopy with laser lithotripsy and stone basket extraction with right ureteral stent placement due to right ureteral stone and right renal stones, dated 05/24/2019. 8. Abdomen x-ray dated 05/26/2019. Impression: No complication. There is a right nephroureteral stent in good position. HOSPITAL COURSE: A 64-year-old, female with a past medical history of coronary artery disease status post stent 15 years ago, gastric bypass, fibromyalgia, degenerative disk disease, who reported that she fell the week before admission onto her right knee. Then she fell again last Sunday. She was admitted on 05/23/2019. She has had 4 falls this week and hit her knee again with pain up to the right hip. She has had intermittent chest pain for the past 2 weeks as well. On Sunday, she had an episode of diarrhea that lasted for 30 minutes and she has not had any kind of diarrhea since then. She has not been able to eat any kind of food as well, just some sips of liquid. She has had some bouts of nausea and vomiting, some dizziness, back pain as well as flank pain, she does have CVA tenderness. Initial workup in the ED showed a normal hip and knee x-ray only with some mild arthritis. Chest x-ray with no acute abnormality. Her white blood cell count was elevated at 17. BUN and creatinine elevated as well, in 2014, her creatinine was completely normal. CT scan of the abdomen showed right hydronephrosis with multiple stones in the right ureter. Echocardiogram showed a normal ejection fraction. Troponins are negative. EKG showed sinus rhythm with some PVCs. She was admitted. She was placed on antibiotics and Urology Department was consulted, and they did on 05/24/2019 a cystoscopy with right ureteroscopy with laser lithotripsy, stone basket extraction, and right ureteral stent placement. At some point during the intervention, they were breaking up a stone and a large amount of purulence returned from behind the stones, the stones were then removed higher up and a large amount of sediment was seen in the proximal ureter at that time. Because of this, I switched the antibiotics to Zosyn to be more aggressive and have more coverage. We asked for a urine culture and blood culture. Blood culture has been negative for more than 48 hours and the urine culture showed Escherichia coli that basically is pansensitive. Yesterday I discussed the case with the urologist and we have decided to switched this patient to levofloxacin. Today the kidney function is almost back to normal. BUN is normal, creatinine 1.3. Vital signs are stable and white blood cell count normalized. This patient is feeling much better and she wants to go home. I do believe she is stable enough to go home. I asked the patient to drink plenty of fluids. Normally, due to her GFR which is 41, she will need to take the antibiotics every 48 hours, her levofloxacin. I asked the patient to start taking the treatment tomorrow and do a new BMP in 2 days. After doing that, she will call me back so I can tell her what to do with the antibiotics which is either continue with treatment on a daily basis or every other day. They seem to understand and proceed. She will follow up upon discharge with her primary care provider in 1 to 2 weeks. Also, she will follow up with Dr. Bony Valerio on 05/30/2019. At the moment of discharge, this patient was in a stable medical condition. Tolerating p.o. and ambulating. OBJECTIVE: Vital Signs: Temperature 98.2 degrees, pulse 70, respiratory rate 18, blood pressure 126/55, oxygen saturation 96 on room air. HEENT: Head normocephalic, no trauma. PERRLA. Neck: Supple. No JVD. No masses. Central trachea. Chest: Clear to auscultation. No wheezing. No rales. Abdomen: Soft. Some tenderness to palpation at the level of the right abdominal area. No signs of peritoneal irritation. Extremities: Trace edema. No clubbing, no cyanosis. Neurological: The patient is awake, alert. She is alert x3. No focal deficits. LABORATORY DATA: WBC 8.7, hemoglobin 12.2, hematocrit 39.1, platelets 121,000. Sodium 135, potassium 3.3, chloride 111, bicarbonate 21, BUN 20, creatinine 1.3, glucose 89, calcium 8. DISCHARGE MEDICATIONS: 1. Acetaminophen 650 mg p.o. q.6 hours as needed. 2. Cymbalta 60 mg p.o. daily. 3. [place] 7.5 q.6 hours as needed for pain. 4. Levofloxacin 750 mg p.o. daily, they will repeat the lab work in 2 days. 5. Flomax 0.4 mg p.o. daily. This patient will call me back in a couple days. Her cell phone number is [phone]. Once I get the results back from her BNP, I will call her back and make arrangements. cc: Yoandy Sethi MD
== END 2019-05-27 12:08 | disposition home or self-care (01) | DRG 661 ==
LOC: ED 09:24 → SUATTDRO 17:17 → EDIPHOLD 17:17 → 1N 20:33
PROVIDERS: ATTEND Internal Medicine